=== PATIENT | female | born 1940 | race Caucasian/White ===

== ENCOUNTER → 2020-03-16 | Outpatient (REF) | payer MEDICARE ==
[~2020-03-16] MED LIST: CRAN450T4 PO; ELIQ5TAB PO; FLEC50HA PO; LOSA50TA88 PO; METO1TAB7 PO; OMEG12004 PO; VEGETABLE SUPPLEMENT PO
== END ==
LOC: M LAB REF 15:57
PROVIDERS: ATTEND Internal Medicine
DX: M06.4 Inflammatory polyarthropathy (principal)

== ENCOUNTER → 2020-03-17 | Outpatient (CLI) | payer MEDICARE ==
--- NOTE | 2020-03-18 09:55 | REP ---
DIGITAL DIAGNOSTIC BILATERAL MAMMOGRAPHY WITH CAD, 3D TOMOGRAPHY, AND FOCUSED RIGHT BREAST SONOGRAPHY: HISTORY: Right breast nipple inversion. The patient reports that her nipple is unchanged but has a horizontal crease. Comparison mammography, March 28, 2014. MAM[facility]IC FINDINGS: [facility] . Breast parenchyma is heterogeneously dense. There has been some involution since the prior study. No subareolar density or dominant density is seen in either breast. Atherosclerotic vascular calcifications present bilaterally. No microcalcification is seen. No architectural distortion or worrisome skin change is seen. Neither nipple is inverted mammographically. Routine views of the right breast are augmented by magnified focal spot subareolar images of the right breast in the craniocaudal and mediolateral projection. These show no additional abnormality. No mammographically suspicious finding. SONOGRAPHIC FINDINGS: Focused right breast sonography is performed in the retroareolar region. Heterogeneous fibroglandular background echotexture is seen. In the 9-o'clock position, there is a superficial hypoechoic area measuring 4 x 4 x 2 mm. This does not appear to be a simple cyst. There is no enhanced through transmission. IMPRESSION: BIRADS 4: BI-RADS/ACR category 4 mammogram. Suspicious Abnormality - biopsy should be considered. No mammographic abnormality. BI-RADS category 4 suspicious sonographic findings. In the retroareolar region 9-o'clock position right breast, sonography demonstrates a 4 mm hypoechoic area which does not appear to be a simple cyst. Ultrasound-guided needle biopsy recommended. Marker clip placement and post marker clip placement mammography recommended. This mammogram was interpreted with the aid of an FDA-approved computer-aided detection system. The patient states she had a clinical breast exam in February 2020. The patient letter being requested is M4.
== END ==
LOC: M WHC 12:45
PROVIDERS: ATTEND Internal Medicine
DX: N64.59 Other signs and symptoms in breast (principal); R92.8 Other abnormal and inconclusive findings on diagnostic imaging of breast
CPT/HCPCS: 76642; 77066; G0279

== ENCOUNTER → 2020-03-25 | Outpatient (CLI) | payer MEDICARE ==
[2020-03-25 12:23] VITALS: BP 129/59
--- NOTE | 2020-03-25 14:06 | REP ---
REASON: Assess palpable mass in the distal right lower leg medially. Ultrasonographic evaluation of a palpable mass distal right lower leg medially shows no discernable cystic or solid masses. IMPRESSION: No discernible cystic or solid masses. Electronically Signed by Tyler Chairez DO 03/25/2020 02:24 P
== END ==
LOC: M IRPRO 11:57
PROVIDERS: ATTEND Internal Medicine
DX: D48.5 Neoplasm of uncertain behavior of skin (principal); Z79.01 Long term (current) use of anticoagulants; I48.0 Paroxysmal atrial fibrillation; I10 Essential (primary) hypertension; I49.5 Sick sinus syndrome

== ENCOUNTER → 2020-04-09 | Outpatient (CLI) | payer MEDICARE ==
[2020-04-09 10:08] VITALS: BP 140/72
--- NOTE | 2020-04-09 12:47 | REP ---
POST BIOPSY MAMMOGRAM, RIGHT BREAST: ML and CC views right breast performed status post ultrasound-guided biopsy of a retroareolar nodule. Metallic clip is seen in the right retroareolar region slightly inferiorly. The nodule is only seen sonographically and was not visualized on the mammogram of 03/17/2020.
--- NOTE | 2020-04-10 17:20 | REP ---
Ultrasound-guided right breast biopsy. The procedure was performed by NINFA Asencio, under the direct supervision of Dr. Chairez. The risks and benefits of the procedure were explained to the patient and informed consent was obtained both verbally and written. Directly prior to the start of the procedure, a formal timeout was completed in the procedure room. The right breast mass was localized using ultrasound guidance. The skin was prepped and draped in a sterile fashion. 10 ml of buffered lidocaine was used as a local anesthetic. Using ultrasound guidance a 13.5-gauge introducer and 14 gauge Temno biopsy needle was inserted and 7 core biopsy samples were obtained. A marker clip was placed at the biopsy site. The patient tolerated the procedure well and there were no immediate complications. After the appropriate monitored convalescence the patient was discharged from the department. Reviewed by NINFA Muro 04/09/2020 10:19 A Electronically Signed by Tyler Chairez DO 04/10/2020 05:12 P
== END ==
LOC: M WHCPRO 08:20
PROVIDERS: ATTEND Internal Medicine
DX: N60.11 Diffuse cystic mastopathy of right breast (principal); R92.8 Other abnormal and inconclusive findings on diagnostic imaging of breast

== ENCOUNTER → 2020-08-20 | Outpatient (REF) | payer MEDICARE | LOC: M LAB REF 11:42 | PROVIDERS: ATTEND Internal Medicine | DX: I48.0 Paroxysmal atrial fibrillation (principal) ==

== ENCOUNTER → 2020-11-05 | Outpatient (REF) | payer MEDICARE | LOC: M LAB REF 12:31 | PROVIDERS: ATTEND Internal Medicine | DX: N39.0 Urinary tract infection, site not specified (principal) ==

== ENCOUNTER → 2020-12-02 | Outpatient (REF) | payer MEDICARE | LOC: M LAB REF 12:09 | PROVIDERS: ATTEND Internal Medicine | DX: N30.01 Acute cystitis with hematuria (principal); M54.5 Low back pain ==

== ENCOUNTER → 2021-05-10 | Outpatient (REF) | payer MEDICARE | LOC: M WUC 20:32 | PROVIDERS: ATTEND Physician Assistant | DX: N39.0 Urinary tract infection, site not specified (principal) ==

== ENCOUNTER → 2021-08-05 | Outpatient (REF) | payer MEDICARE | LOC: M LAB REF 16:29 | PROVIDERS: ATTEND Physician Assistant Medical | DX: R35.0 Frequency of micturition (principal) ==

== ENCOUNTER → 2021-08-23 | Outpatient (REF) | payer MEDICARE | LOC: M LAB REF 16:29 | PROVIDERS: ATTEND Internal Medicine | DX: N39.0 Urinary tract infection, site not specified (principal) ==

== ENCOUNTER → 2021-12-16 | Outpatient (REF) | payer MEDICARE ==
[~2021-12-16] MED LIST changes: +LOSA50TA28 PO; -LOSA50TA88 PO
[2021-12-17 12:49] LABS: PERCENT SATURATION 34.6 % (13.2-45.0)
== END ==
LOC: M LAB REF 12:04
PROVIDERS: ATTEND Internal Medicine
DX: D64.9 Anemia, unspecified (principal)

== ENCOUNTER → 2021-12-30 | Outpatient (REF) | payer MEDICARE ==
[2021-12-30 13:20] LABS: HEMATOCRIT 35.7 % (36.0-47.0)
== END ==
LOC: M LAB REF 12:34
PROVIDERS: ATTEND Internal Medicine
DX: D50.9 Iron deficiency anemia, unspecified (principal)

== ENCOUNTER → 2022-01-30 | Outpatient (REF) | payer MEDICARE | LOC: M WUC 17:33 | PROVIDERS: ATTEND Physician Assistant | DX: R30.0 Dysuria (principal) ==

== ENCOUNTER → 2023-03-14 | Outpatient (REF) | payer MEDICARE ==
[2023-03-14 17:33] LABS: FERRITIN 171.1 NG/ML (7.3-270.7)
[2023-03-14 17:34] LABS: FOLATE 18.6 NG/ML (>5.4)
== END ==
LOC: M LAB REF 16:33
PROVIDERS: ATTEND Internal Medicine
DX: D64.9 Anemia, unspecified (principal)

== ENCOUNTER → 2023-06-08 | Outpatient (REF) | payer MEDICARE ==
[2023-06-09 10:22] LABS: PERCENT SATURATION 33.9 % (13.2-45.0)
[2023-06-09 10:25] LABS: FERRITIN 182.5 NG/ML (7.3-270.7)
== END ==
LOC: M LAB REF 09:45
PROVIDERS: ATTEND Internal Medicine
DX: D64.9 Anemia, unspecified (principal)

== ENCOUNTER → 2023-08-21 | Outpatient (CLI) | payer MEDICARE | LOC: M RAD 14:34 | PROVIDERS: ATTEND Nurse Practitioner Family | DX: R06.09 Other forms of dyspnea (principal) ==

== ENCOUNTER → 2023-12-25 | Outpatient (CLI) | payer MEDICARE | LOC: M RAD 15:43 | PROVIDERS: ATTEND Internal Medicine | DX: M16.11 Unilateral primary osteoarthritis, right hip (principal) ==

== ENCOUNTER → 2024-05-16 | Outpatient (REF) | payer MEDICARE | LOC: M LAB REF 17:13 | PROVIDERS: ATTEND Physician Assistant Medical | DX: N39.0 Urinary tract infection, site not specified (principal) ==

== ENCOUNTER → 2024-08-16 | Outpatient (REF) | payer MEDICARE | LOC: M LAB REF 12:01 | PROVIDERS: ATTEND Physician Assistant Medical | DX: N39.0 Urinary tract infection, site not specified (principal) ==

== ENCOUNTER → 2025-02-17 | Outpatient (REF) | payer MEDICARE ==
[2025-02-17 18:57] LABS: PERCENT SATURATION 25.7 % (13.2-45.0)
[2025-02-17 19:00] LABS: FERRITIN 228.7 NG/ML (7.3-270.7)
== END ==
LOC: M LAB REF 17:25
PROVIDERS: ATTEND Internal Medicine
DX: I48.0 Paroxysmal atrial fibrillation (principal); N18.31 Chronic kidney disease, stage 3a

== ENCOUNTER → 2025-03-04 | Outpatient (REF) | payer MEDICARE | LOC: M LAB REF 10:10 | PROVIDERS: ATTEND Internal Medicine | DX: R19.7 Diarrhea, unspecified (principal) ==

== ENCOUNTER → 2025-03-14 | Outpatient (REF) | payer MEDICARE | LOC: M LAB REF 12:14 | PROVIDERS: ATTEND Internal Medicine | DX: R10.9 Unspecified abdominal pain (principal) ==

== ENCOUNTER → 2025-05-22 | Outpatient (CLI) | payer MEDICARE ==
[~2025-05-22] MED LIST changes: +ISOVUE-370 76% 100 ML VIAL ONE
== END ==
LOC: M PLAIMG 10:15
PROVIDERS: ATTEND Internal Medicine
DX: R10.9 Unspecified abdominal pain (principal)
CPT/HCPCS: 74177; Q9967

== ENCOUNTER 2025-07-10 08:47 | Day surgery (SDC) | payer MEDICARE ==
[~2025-07-10] VITALS: Ht 157.5 cm; Wt 61.2 kg
[~2025-07-10 08:47] MED LIST changes: -ISOVUE-370 76% 100 ML VIAL ONE
[2025-07-10] MEDS ORDERED: LIDOCAINE 2% 100 MG/5 ML SDV (FOR ANES.) As Ordered ONE (09:56)
[2025-07-10 10:29] VITALS: TEMP 97.3
[2025-07-10 10:55] VITALS: BP 132/60; O2SAT 98
== END 2025-07-10 11:05 | disposition home or self-care (01) ==
LOC: M OPP 08:47
PROVIDERS: ATTEND Surgery
DX: Z12.11 Encounter for screening for malignant neoplasm of colon (principal); D12.6 Benign neoplasm of colon, unspecified; K57.30 Diverticulosis of large intestine without perforation or abscess without bleeding; Z80.0 Family history of malignant neoplasm of digestive organs; K22.2 Esophageal obstruction; K29.71 Gastritis, unspecified, with bleeding; R10.13 Epigastric pain; Z95.0 Presence of cardiac pacemaker; Z88.8 Allergy status to other drugs, medicaments and biological substances; Z79.01 Long term (current) use of anticoagulants; Z79.899 Other long term (current) drug therapy
CPT/HCPCS: 43239; 88305; G0105

== ENCOUNTER → 2025-08-19 | Outpatient (CLI) | payer MEDICARE | LOC: M PLAIMG 13:06 | PROVIDERS: ATTEND Internal Medicine | DX: R06.02 Shortness of breath (principal) ==

== ENCOUNTER → 2025-08-21 | Outpatient (REF) | payer MEDICARE ==
[~2025-08-21] MED LIST changes: +ESTR1CRE PV; +OMEP40CA4 PO; +SUCR1TA PO
== END ==
LOC: M LAB REF 12:26
PROVIDERS: ATTEND Internal Medicine
DX: Z11.1 Encounter for screening for respiratory tuberculosis (principal)

== ENCOUNTER → 2025-08-21 | Outpatient (REF) | payer MEDICARE ==
[2025-08-21 13:38] LABS: C REACTIVE PROTEIN QUANTITATIV < 0.50 MG/DL (<1.0); IRON (FE) 103 UG/DL (50-170); PERCENT SATURATION 36.5 % (13.2-45.0)
== END ==
LOC: M LAB REF 12:30
PROVIDERS: ATTEND Internal Medicine
DX: R53.1 Weakness (principal); M06.4 Inflammatory polyarthropathy; Z11.1 Encounter for screening for respiratory tuberculosis

== ENCOUNTER 2025-08-22 08:25 | Emergency (ER) | payer MEDICARE ==
[~2025-08-22] VITALS: Ht 160 cm; Wt 60.5 kg
[~2025-08-22 08:25] MED LIST changes: -ESTR1CRE PV; -OMEP40CA4 PO; -SUCR1TA PO
[2025-08-22 08:58] LABS: BASO # 0.0 10^3/uL (0.0-0.2); BASO % 0.7 % (0.0-1.0); EOS # 0.1 10^3/uL (0.0-0.5); EOS % 1.7 % (0.0-3.0); LYMPH # 0.8 10^3/uL (1.5-5.0); LYMPH % 20.5 % (24.0-44.0); MONO # 0.3 10^3/uL (0.0-0.8); MONO % 8.4 % (2.0-8.0); NEUTROPHILS # 2.8 10^3/uL (1.5-8.5); NEUTROPHILS % 68.2 % (36.0-66.0); PLATELET COUNT, AUTOMATED 165 10^3/uL (150-450)
[2025-08-22 09:18] LABS: INR 1.12
[2025-08-22 09:21] LABS: ALT/SGPT 14 U/L (7.0-40); AST/SGOT 19 U/L (<34); CALCIUM LEVEL 9.8 MG/DL (8.3-10.6); CARBON DIOXIDE LEVEL 25 MMOL/L (20-31); CHLORIDE LEVEL 97 MMOL/L (98-107); CK-MB VALUE MASS < 1.0 NG/ML (<3.6); CREATININE FOR GFR 0.94 MG/DL (0.55-1.30); GLOMERULAR FILTRATION RATE 59.1 (>32); POTASSIUM SERUM 4.1 MMOL/L (3.5-5.1); SODIUM LEVEL 132 MMOL/L (136-145)
[2025-08-22 09:23] LABS: FREE T4 1.23 NG/DL (0.89-1.76)
[2025-08-22 09:27] LABS: CPK CREATINE PHOSPHOKINASE 50 U/L (34-145)
[2025-08-22] MEDS ORDERED: ESTR1CRE PV (09:59)
[2025-08-22] MEDS ORDERED: HOME MED LIST COMPLETE! XX SCH (10:05)
[2025-08-22 10:23] LABS: CK-MB VALUE MASS < 1.0 NG/ML (<3.6)
[2025-08-22 10:24] LABS: CPK CREATINE PHOSPHOKINASE 38 U/L (34-145)
[2025-08-22] MEDS ORDERED: MORPHINE 4 MG/ML 1 ML VIAL IV PRN (10:35)
[2025-08-22] MEDS ORDERED: HEPARIN DRIP 25,000 UNITS in IV 1 EA IV SCH (10:35)
[2025-08-22] MEDS: ASPIRIN 81 MG CHEWABLE TABLET PO ONE (10:38)
[2025-08-22 10:40] VITALS: BP 215/90
[2025-08-22] MEDS: NITROGLYCERIN 2% OINT 1 GM *U/D* PKT TOP ONE (10:40)
[2025-08-22 10:52] LABS: KETONE, URINE AUTO RFX NEGATIVE (NEGATIVE); LEUKOCYTE ESTERASE UR AUTO RFX NEGATIVE (NEGATIVE); NITRITE, URINE AUTO RFX NEGATIVE (NEGATIVE); RBC, URINE AUTO RFX 0 /HPF (0-3); SQUAM EPITHELIAL CELL UR AURFX 0 /HPF (0-6); WBC, URINE AUTO RFX 0 /HPF (0-3)
[2025-08-22] MEDS ORDERED: ISOVUE-370 76% 100 ML VIAL As Ordered ONE (11:46)
[2025-08-22] MEDS ORDERED: OMEP40CA4 PO (15:18)
[2025-08-22] MEDS ORDERED: SUCR1TA PO (15:18)
[2025-08-22] MEDS: SUCRALFATE SUSP 1GM/10ML UD PO ONE (15:20)
[2025-08-22 15:43] VITALS: BP 171/72; TEMP 97.4; O2SAT 94
== END 2025-08-22 15:56 | disposition home or self-care (01) ==
LOC: M ED 08:25
DX: I21.4 Non-ST elevation (NSTEMI) myocardial infarction (principal); K29.70 Gastritis, unspecified, without bleeding; I48.91 Unspecified atrial fibrillation; R93.2 Abnormal findings on diagnostic imaging of liver and biliary tract; I10 Essential (primary) hypertension; K21.9 Gastro-esophageal reflux disease without esophagitis; Z95.0 Presence of cardiac pacemaker; Z79.01 Long term (current) use of anticoagulants; Z79.899 Other long term (current) drug therapy; Z88.5 Allergy status to narcotic agent; Z88.6 Allergy status to analgesic agent; Z88.8 Allergy status to other drugs, medicaments and biological substances
CPT/HCPCS: 71045; 71275; 74177; 80048; 80076; 81001; 82550; 82553; 83690; 83880; 84134; 84439; 84443; 84484; 85025; 85610; 85730; 93005; 93041; 94760; 99285; Q9967

== ENCOUNTER → 2025-09-11 | Outpatient (CLI) | payer MEDICARE ==
[~2025-09-11] MED LIST changes: +ESTR1CRE PV; +OMEP40CA4 PO; +SUCR1TA PO
== END ==
LOC: M RAD 10:12
PROVIDERS: ATTEND Internal Medicine
DX: R59.0 Localized enlarged lymph nodes (principal); R10.11 Right upper quadrant pain